=== PATIENT | male | born 1970 | race Caucasian/White ===

== ENCOUNTER → 2018-04-29 | Outpatient (CLI) | payer OTHER ==
[~2018-04-29] VITALS: Ht 188 cm; Wt 83.4 kg
--- NOTE | ~2018-04-29 | HC ---
[facility] [place] [address] CONSULTATION Name: DEBO SANDOVAL Room #: REG [facility]#: [id number] Admission: 04/29/18 Attend Phys: Wood Kaye Discharge: Date of : 72 Report #: [id number] THIS REPORT FOR: //name// CC: Wood Winkler MD DATE OF SERVICE: 04/29/2018 REASON FOR CONSULTATION: Fatigue. Positive infectious mononucleosis (EBV infection). HISTORY OF PRESENT ILLNESS: The patient is a 47-year-old white man seen with history of positive EBV serology of several months' duration. Apparently, this patient developed increasing fatigue, muscle body aches and pains, increased somnolence and weight loss of 10-12 pounds. With this combination of signs and symptoms, the patient went on visiting with Dr. 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 The patient's symptoms persisted since 02/2018 and on account of these, an ID opinion is requested. The patient tells me that he went on developing the combination of signs and symptoms shortly after the patient's developed a sore throat. The patient never came down with sore throat or fevers for that matter. Anyway, the patient is not feeling well. He was rather energetic person that was not only doing his daily work, but taking care of his mother, I believe. The patient was on treatment with cholesterol lowering medication and this was discontinued, not to complicate matters more in view of his history of body aches and pains. PAST MEDICAL HISTORY: Dyslipidemia for which he had been on a cholesterol lowering medication, which recently was stopped. He has left knee torn meniscus requiring arthroscopic surgical intervention. No previous hospitalization, no history of depression. SOCIAL HISTORY: The patient works for [employer] and he is a computer programmer chief. He is . He has had a stepdaughter. FAMILY HISTORY: Father suffered sudden at age 53. Mother is alive and has a history of breast cancer. Has a brother that is alive and healthy. REVIEW OF SYSTEMS: Essentially noncontributory besides symptoms of fatigue, hypersomnolence, body aches and pains and weight loss. PHYSICAL EXAMINATION: GENERAL: Well-developed, well-nourished appearing white man in no distress with height 6 weeks 2 inches. Weight 183 pounds. VITAL SIGNS: Blood pressure 118/72, pulse 83, temperature 98.7, O2 saturation [address] [address] CONSULTATION Name: DEBO SANDOVAL Room #: [facility].#: [id number] Admission: 04/29/18 Attend Phys: Wood Kaye Discharge: Date of : 72 Report #: [id number] 97% at room air. HEENMT: Head normocephalic, atraumatic. Pupils reactive. Mouth revealed evidence of periodontal disease, stain of teeth and all in all, poor oral hygiene. He is queried about dental care and he flosses every now and then. He had not seen a dentist in 3 years. There is no thrush or hairy leukoplakia. NECK: Supple, no thyromegaly or lymphadenopathy. LYMPHOVASCULAR: Revealed no supraclavicular, axillary or inguinal adenopathy. LUNGS: Clear to auscultation. HEART: S1, S2. No gallops or murmur. ABDOMEN: Soft, no masses or megaly. GENITALIA: Normal testicles, epididymis. RECTAL: Deferred. EXTREMITIES: No clubbing, cyanosis, pretibial edema. NEUROLOGIC: Grossly within normal limits. LABORATORY DATA: The patient has several sets of blood tests that have included CBCs and CMPs starting all the way back to 03/19/2018. At that time, a CMP is completely normal. A CBC also rather normal and specifically showing no evidence of atypical lymphocytes or lymphocytosis. WBC 8700, hemoglobin 15.5 g/dL, platelets 270,000. The EB virus serology has been performed on several occasions and they all revealed similar findings of EBV antibody VCA IgM positive, elevated EBV, early antigen IgG antibody positive, EBV nuclear antigen antibody positive. These were repeated and they revealed us exactly similar findings. A repeat CBC on 04/24/2018 revealed the leukocytosis of 13,800, hemoglobin 15.9 g/dL, platelets 275,000 with a fairly normal differential and no evidence of immature cells or atypical lymphocytes. ASSESSMENT: 1. Fatigue, hypersomnolence and weight loss of undetermined etiology. 2. 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 3. Dyslipidemia, off cholesterol lowering medication. 4. Periodontal disease. SUGGESTIONS: Recommended this patient has some further laboratory testing that includes PA and lateral chest x-ray in view of his history of cigarette smoking. I also recommend he has an HIV serology, ESR, CRP and CPK. Obviously, he must be seen by a dentist regarding possible periodontal disease. We may not only need to address the issue of possible organic pathology, but possibility of psychopathology. Have put a phone call to Dr. Geraldo Sheppard, neuropsychologist to see if he will be willing to evaluate this patient. I would like to visit with the patient again in 2 weeks. We will put a phone call to Dr. Amrit Winkler. [address] [place] [address] CONSULTATION Name: DEBO SANDOVAL Room #: REG [facility]#: [id number] Admission: 04/29/18 Attend Phys: Wood Kaye Discharge: Date of : 72 Report #: [id number] Winkler, thank you for requesting my suggestions in the care of your patient. <ELECTRONICALLY SIGNED> By: Wood Self MD 05/03/18 [id number] Wood Self MD /nt
[2018-04-29 11:08] VITALS: BP 118/72
[2018-04-30 17:10] LABS: HIV ANTIBODY Non Reactive (Non Reactive)
== END ==
LOC: SEN 08:49 → RAD 08:49
PROVIDERS: Internal Medicine Infectious Disease
DX: E78.5 Hyperlipidemia, unspecified (principal); R06.02 Shortness of breath; K05.6 Periodontal disease, unspecified; B27.00 Gammaherpesviral mononucleosis without complication; R53.83 Other fatigue; F17.200 Nicotine dependence, unspecified, uncomplicated